=== PATIENT | female | born 1995 | race Caucasian/White ===

== ENCOUNTER 2017-10-09 07:46 | Emergency (ER) | payer MEDICAID, SELFPAY ==
[2017-10-09 07:47] VITALS: BP 152/110; PULSE 109; RESP 22; TEMP 36.6; O2SAT 96; BMI 36.8
--- NOTE | 2017-10-09 08:03 | CT_ITS ---
STUDY: CT ABDOMEN AND PELVIS WITHOUT CONTRAST REASON FOR EXAM: Female, 22 years old. Abdominal pain. Nausea. RADIATION DOSAGE (If Supplied By Facility): CTDIvol = ( 22.81 ) mGy, DLP = ( 1185.23 ) mGycm TECHNIQUE: Transaxial images were obtained from the dome of the diaphragm to the symphysis pubis without oral contrast, and without intravenous contrast. Sagittal and coronal images were reconstructed. Individualized dose optimization techniques were used for this CT. COMPARISON: None. FINDINGS: The visualized lung bases are unremarkable. The visualized portions of the heart are within normal limits. There is decreased attenuation of the liver consistent with steatosis. There are surgical clips in the gallbladder fossa consistent with a prior cholecystectomy. Normal spleen. Normal pancreas. Normal bilateral adrenal glands. There is mild right hydronephrosis. There is 0.3 cm right distal ureteral stone adjacent to the ureterovesical junction, series 2 image 162/189. Normal left kidney. Normal visualized stomach. Normal small intestine. Normal colon. The appendix is visualized and appears normal. Normal abdominal aorta. Normal inferior vena cava. Normal retroperitoneum. Normal urinary bladder. Normal visualized uterus. There is no free fluid in the abdomen or pelvis. Normal abdominal wall. There is levoscoliosis of the spine. CT/Abdomen/Pelvis without Cont IMPRESSION: Right distal ureteral stone with mild hydronephrosis. Electronically Signed: Thanh Rubin MD at 9:47 EST , Service support ,
[2017-10-09 08:28] LABS: Mucous, Urine 0 SEEN /hpf (<or=2+); Red Blood Cells-Urine 0 SEEN /hpf (0-5)
[2017-10-09] MEDS: 0.9% Normal Saline 1,000 ML 1000 ML IV (08:32)
[2017-10-09] MEDS: Ondansetron 4 MG/2 ML Vial IV (08:32)
[2017-10-09 08:36] LABS: Absolute Lymphocyte Count 3.04 X10^3/ul (0.83-4.51); Absolute Neutrophil Count 4.1 X10^3/uL (2.0-7.7); Basophil# 0.02 X10^3/uL; Basophil% 0.2 % (0-1); Eosinophil# 0.39 X10^3/uL; Eosinophils% 4.7 % (0-5); Hematocrit 41.1 % (37-47); Hemoglobin 13.5 g/dl (12.0-15.0); Lymphocyte # 3.04 X10^3/ul (4.0); Lymphocyte % 36.8 % (19-41); Mean Corp Hgb Conc 32.8 g/gl (32-36); Mean Corpuscular Hgb 29.1 pg (27.0-32.0); Mean Corpuscular Volume 88.6 fL (81-99); Mean Platelet Vol. 9.8 fl (6.2-12.0); Monocyte# 0.67 X10^3/uL; Monocyte% 8.1 % (0-10); Neutrophil # 4.13 X10^3/uL (2.7-7.7); POSITIVE COUNT NO; POSITIVE DIFFERENTIAL NO; POSITIVE MORPHOLOGY NO; Platelet Count 241 K/mm3 (150-450); RBC Distribution Width CV 12.7 % (11.6-14.6); RBC Distribution Width SD 40.6 fl (35.1-43.9); Red Blood Count 4.64 M/mm3 (4.2-5.4); White Blood Count 8.3 K/mm3 (4.4-11.0)
[2017-10-09 08:43] LABS: Color, Urine Yellow (Yellow); Glucose, Dipstick Normal (Normal); Ketone-Dipstick Negative (Negative); Leukocyte Esterase-Dipstick 25 /ul (Negative); Nitrite-Dipstick Negative (Negative); Occult Blood-Urine Negative /ul (Negative); Protein-Dipstick Negative (Negative); Urine Bilirubin Dipstick Negative (Negative); Urine Clarity Sl. Cloudy (Clear); Urine Urobilinogen Normal (Normal)
[2017-10-09 08:50] LABS: ALB/GLOB Ratio 0.9 RATIO (0.9-2.4); AST(SGOT) 25 U/L (15-37); Alanine Aminotransfer ALT/SGPT 59 U/L (13-56); Albumin, Serum 3.5 g/dL (3.2-5.0); Alkaline Phosphatase 97 U/L (45-117); Anion Gap 7 (5-15); BUN 14 mg/dL (7-18); BUN/Creat Ratio 20.1 RATIO (10-20); Calcium,Total 8.4 mg/dL (8.5-10.1); Chloride 107 mmol/L (98-107); EST Glomerular Filtration Rate 111 mL/min (>60); Est Glom Filt Rate - Afr Amer 134 mL/min (>60); Estimated Creatinine Clearance 107.93 ml/min; Glucose 101 mg/dL (74-106); Lipase 159 U/L (73-393); Potassium 4.3 mmol/L (3.5-5.1); Protein, Total 7.5 g/dL (6.4-8.2); Sodium Level 139 mmol/L (136-145)
[2017-10-09 08:59] LABS: Bacteria 1+ /hpf (None Seen); Squamous Epithelial Cells - UA 0-5 SEEN /hpf (5-10); White Blood Cells 0-5 SEEN /hpf (0-5)
[2017-10-09 09:00] LABS: Amorphous Sediment 1+
[2017-10-09 09:05] LABS: Internal QC Validated? YES +Cl - CLEAR BKGD; Pregnancy, Urine Negative Negative
[2017-10-09] MEDS: Ketorolac 30 MG/ML Syringe IV (09:33)
--- NOTE | 2017-10-09 10:05 | ED.DCSUM_ITS ---
- ER Visit Summary Date of Service: 10/09/17 Chief Complaint: Abdominal pain History of Present Illness: The patient is a 22 F who presents with abdominal pain. It is been present less than 1 hour. It began suddenly shortly before presentation. It woke her from sleep. It is sharp and stabbing in the right lower quadrant and is nonradiating. She denies any flank pain. She denies vaginal bleeding or pelvic pain. She denies dysuria frequency urgency or hematuria. No diarrhea or constipation. She reports nausea without vomiting. No fevers. Physical Examination: Blood pressure 152/110 heart rate 109 Patient appears uncomfortable Moist mucous membranes Heart regular rhythm tachycardia Lungs are clear Abdomen soft nondistended she does have mid right abdominal tenderness no guarding no rebound no flank or CVA tenderness Test Results: CBC CMP lipase all unremarkable. Urinalysis normal. negative. CT of the flank does show a 3 mm distal right ureteral calculus at the UVJ with mild hydronephrosis. Emergency Department Course and Treatment: Patient was initially treated with IV fluids morphine and Zofran. She continued to complain of significant pain. She was given Toradol with moderate relief. She reports a 50% reduction in pain after Toradol. She is resting comfortably. Given the size and location of your her ureteral calculus I feel conservative management most appropriate at this time. She was given prescriptions for Flomax and Percocet and referred to urology. She was instructed on specific signs and symptoms to monitor for and conditions under which to return to the emergency department. Patient comfortable with this plan and all questions answered at bedside. Patient discharged. Treatment Plan: [] Disposition: Discharge Impression: Ureterolithiasis This note was generated with [employer] dictation software. It may contain incorrect words, spelling, and punctuation that were not noted in review of the chart prior to signing ED Disposition - Plan for ED Patient: Chief Complaint: Abd Pain Referrals: Anika Garay [Primary Care Provider] -
--- NOTE | 2017-10-09 10:05 | ED.DEP ---
ED Disposition - Plan for ED Patient: Chief Complaint: Abd Pain Instructions: ED Stone Renal W Colic Prescriptions: Oxycodone HCl/Acetaminophen [Percocet 5/325] 1 tab PO Q6H PRN PRN 3 Days #12 tab PRN Reason: Pain Tamsulosin HCl [Flomax] 0.4 mg PO DAILY 14 Days cap Referrals: [facility],Anika Lara [Primary Care Provider] - Shan Orozco MD [STAFF PHYSICIAN] -
[2017-10-09 10:07] VITALS: BP 138/77; PULSE 69; RESP 15; O2SAT 98
[2017-10-09 10:15] VITALS: BP 126/74; PULSE 73; RESP 15; O2SAT 98
== END 2017-10-09 10:16 | disposition home or self-care (01) ==
PROVIDERS: Emergency Provider Emergency Medicine
DX: N13.2 Hydronephrosis with renal and ureteral calculous obstruction (principal)
CPT/HCPCS: 74176; 80053; 81001; 81025; 83690; 85025; 96361; 96374; 96375; 99283; J7030; A4216; J2405

== ENCOUNTER 2018-04-21 22:02 | Emergency (ER) | payer SELFPAY ==
[2018-04-21 22:03] VITALS: BP 127/88; PULSE 84; RESP 18; TEMP 37.1; O2SAT 99; BMI 39.4
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
--- NOTE | 2018-04-21 23:13 | DCINST.ED_ITS ---
ED Disposition - Plan for ED Patient: Disposition: Home or Assisted Living Chief Complaint: Fatigue Instructions: ED Insomnia, ED Stress React Prescriptions: Hydroxyzine HCl 25 mg PO TID PRN #20 tab PRN Reason: Anxiety Referrals: Anika Garay [Primary Care Provider] - 3-5 Days Additional Instructions: Follow-up with your doctor as soon as possible, preferably in the next 3-5 days , to discuss management of your ongoing anxiety issues. Working a new third shift job will interfere with your sleep, thus it is not surprising you are feeling fatigued. Please establish a regular sleep schedule and make sure to eat well-balanced meals and stay hydrated to help with your sleep cycle and well -being. If you have any worsening of your condition or any new concerning symptoms, please return immediately to the emergency department for another evaluation.
[2018-04-21] MEDS: hydrOXYzine PAM 25 MG Capsule 50 MG PO (23:26)
[2018-04-21 23:29] VITALS: PULSE 80; RESP 14
== END 2018-04-21 23:32 | disposition home or self-care (01) ==
LOC: ED 23:20
PROVIDERS: Emergency Provider Emergency Medicine
DX: G47.26 Circadian rhythm sleep disorder, shift work type (principal); F43.0 Acute stress reaction; E66.9 Obesity, unspecified; H92.02 Otalgia, left ear; Z72.0 Tobacco use
CPT/HCPCS: 99282